=== PATIENT | female | born 1945 | race Hispanic/Latino ===

== ENCOUNTER 2022-05-03 02:58 | Observation (INO) | payer OTHER, MEDICARE ==
[2022-05-03] VITALS (8 sets, daily range): BP systolic 123–181; BP diastolic 60–94
[~2022-05-03] VITALS: Ht 149.9 cm; Wt 82.8 kg
[~2022-05-03 02:58] MED LIST: IBUP-1493 PO
[2022-05-03 03:41] LABS: BASOPHILS % (AUTO) 0.3 % (0.0-5.0); EOSINOPHILS % (AUTO) 3.1 % (0.0-8.0); HEMATOCRIT 32.8 % (36-48); LYMPHOCYTES % (AUTO) 19.6 % (21.0-51.0); MEAN CORPUSCULAR HGB CONC 32.6 g/dL (32.0-36.0); MEAN CORPUSCULAR VOLUME 88.9 fL (79-99); MONOCYTES % (AUTO) 8.5 % (3.0-13.0); NEUTROPHILS % (AUTO) 68.2 % (40.0-77.0); PLATELET COUNT (AUTO) 179 K/uL (130-400); RED BLOOD CELL COUNT(AUTO) 3.69 MIL/uL (4.00-5.50); RED CELL DISTRIBUTION WIDTH 15.2 % (11.0-15.5); WHITE BLOOD COUNT (AUTO) 7.2 K/uL (4.8-10.8)
[2022-05-03 03:52] LABS: POTASSIUM 3.4 mmol/L (3.5-5.1)
[2022-05-03 03:56] LABS: ALBUMIN 3.6 g/dL (3.5-5.0); TOTAL PROTEIN, SERUM 7.7 g/dL (6.0-8.3)
[2022-05-03] MEDS ORDERED: ONDANSETRON 4MG INJ IVP PRN (05:30)
[2022-05-03] MEDS ORDERED: POTASSIUM CHLORIDE 10MEQ/100ML 100 ML IV PRN (05:30)
[2022-05-03] MEDS ORDERED: MAGNESIUM 2GM PREMIX 50ML 50 ML IV PRN (05:30)
[2022-05-03] MEDS ORDERED: LACTULOSE 20 GM/30 ML UDCUP PO PRN (05:30)
[2022-05-03] MEDS ORDERED: HYDRALAZINE 20MG/ML VIAL IV PRN (05:30)
[2022-05-03] MEDS ORDERED: ACETAMINOPHEN 650 MG SUPPOSITORY RC PRN (05:30)
[2022-05-03] MEDS ORDERED: DOCUSATE SODIUM 100 MG CAP PO PRN (05:30)
[2022-05-03] MEDS ORDERED: TEMAZEPAM 15 MG CAPSULE PO PRN (05:30)
[2022-05-03] MEDS ORDERED: LABETALOL 20MG SYG IV PRN (05:30)
[2022-05-03] MEDS ORDERED: CLONIDINE HCL 0.1 MG TABLET PO PRN (05:30)
[2022-05-03] MEDS ORDERED: GLUCAGON 1MG KIT 1 MG ML IM PRN (05:30)
[2022-05-03] MEDS ORDERED: LIDOCAINE HCL-MPF 1% 2ML VIAL IV PRN (05:30)
[2022-05-03] MEDS ORDERED: POTASSIUM CHLORIDE 10% ELIXIR 20 MEQ/15 ML UDCUP PO PRN (05:30)
[2022-05-03] MEDS ORDERED: DEXTROSE 50%-WATER 50 ML DISP.SYRIN IV PRN (05:30)
[2022-05-03] MEDS ORDERED: NITROGLYCERIN 0.4 MG SL TAB SL PRN (06:00)
[2022-05-03] MEDS ORDERED: IOHEXOL 350 MG/ML 100ML INFUS..BTL IV ONE (06:15)
[2022-05-03] MEDS: INSULIN HUMULIN R 100 UNIT/ML 3ML SQ SCH ×4 (07:30→20:33)
[2022-05-03] MEDS ORDERED: NITR0.4T50 SL (07:51)
[2022-05-03] MEDS ORDERED: FURO20TA4 PO (07:51)
[2022-05-03] MEDS ORDERED: ISOS30TA92 PO (07:51)
[2022-05-03] MEDS ORDERED: ATOR10 PO (07:51)
[2022-05-03] MEDS ORDERED: ACET-2079 PO (07:51)
[2022-05-03] MEDS ORDERED: PANT40TA54 PO (07:51)
[2022-05-03] MEDS ORDERED: AEC81 PO (07:51)
[2022-05-03] MEDS ORDERED: LISI20TA24 PO (07:51)
[2022-05-03] MEDS ORDERED: QUET200T30 PO (07:51)
[2022-05-03] MEDS ORDERED: FAMO20TA8 PO (07:51)
[2022-05-03] MEDS ORDERED: MECL-160 PO (07:51)
[2022-05-03] MEDS ORDERED: PIOG15TA66 PO (07:51)
[2022-05-03] MEDS ORDERED: MELO-106 PO (07:51)
[2022-05-03] MEDS ORDERED: PARO-37 PO (07:51)
[2022-05-03] MEDS ORDERED: ORPH-43 PO (07:51)
[2022-05-03] MEDS ORDERED: LINA5TAB PO (07:51)
[2022-05-03] MEDS: KCL 20 MEQ ERTAB PO PRN ×2 (09:56→13:19)
[2022-05-03] MEDS: PANTOPRAZOLE 40 MG TAB DR PO SCH (09:56)
[2022-05-03] MEDS: ASPIRIN 81MG CHEW TAB PO SCH (09:57)
[2022-05-03] MEDS: ENOXAPARIN SODIUM 40 MG/0.4 ML SYRINGE SQ SCH (09:58)
[2022-05-03] MEDS: ACETAMINOPHEN 325 MG TAB PO PRN ×2 (13:38→20:36)
[2022-05-03] MEDS ORDERED: MECLIZINE HCL 25 MG TABLET PO PRN (15:00)
[2022-05-03] MEDS: FAMOTIDINE 20MG TAB PO SCH (20:36)
[2022-05-03] MEDS ORDERED: ATORVASTATIN 10 MG TABLET PO SCH (21:00)
[2022-05-03] MEDS ORDERED: ATORVASTATIN 40 MG TABLET PO SCH (21:00)
[2022-05-04] MEDS: ACETAMINOPHEN 325 MG TAB PO PRN ×2 (03:47→12:20)
[2022-05-04 04:09] LABS: BASOPHILS % (AUTO) 0.3 % (0.0-5.0); EOSINOPHILS % (AUTO) 5.1 % (0.0-8.0); HEMATOCRIT 31.3 % (36-48); LYMPHOCYTES % (AUTO) 33.4 % (21.0-51.0); MEAN CORPUSCULAR HEMOGLOBIN 28.5 pg (27.0-33.0); MEAN CORPUSCULAR HGB CONC 32.9 g/dL (32.0-36.0); MEAN CORPUSCULAR VOLUME 86.5 fL (79-99); PLATELET COUNT (AUTO) 187 K/uL (130-400); RED BLOOD CELL COUNT(AUTO) 3.62 MIL/uL (4.00-5.50); RED CELL DISTRIBUTION WIDTH 15.1 % (11.0-15.5); WHITE BLOOD COUNT (AUTO) 6.1 K/uL (4.8-10.8)
[2022-05-04 04:29] LABS: CREATININE 0.9 mg/dL (0.5-1.5); MAGNESIUM 1.8 mg/dL (1.80-2.40); PHOSPHORUS 3.3 mg/dL (2.5-4.9)
[2022-05-04 04:33] VITALS: BP 162/83
[2022-05-04] MEDS: INSULIN HUMULIN R 100 UNIT/ML 3ML SQ SCH ×2 (06:42→10:58)
[2022-05-04 08:00] VITALS: BP 153/70
[2022-05-04] MEDS ORDERED: LISINOPRIL 20 MG TABLET PO SCH (09:00)
[2022-05-04] MEDS: ASPIRIN 81MG CHEW TAB PO SCH (09:00)
[2022-05-04] MEDS ORDERED: MELOXICAM 7.5 MG TABLET PO SCH (09:00)
[2022-05-04] MEDS ORDERED: PAROXETINE HCL 20 MG TABLET PO SCH (09:00)
[2022-05-04] MEDS ORDERED: ASPIRIN 81 MG EC TAB PO SCH (09:00)
[2022-05-04] MEDS: ISOSORBIDE MONO 30MG SR TAB PO SCH ×2 (09:00→09:42)
[2022-05-04] MEDS: FAMOTIDINE 20MG TAB PO SCH (09:41)
[2022-05-04] MEDS: PANTOPRAZOLE 40 MG TAB DR PO SCH (09:41)
[2022-05-04] MEDS: ENOXAPARIN SODIUM 40 MG/0.4 ML SYRINGE SQ SCH (09:44)
[2022-05-04 11:40] VITALS: BP 143/79
[2022-05-04] MEDS ORDERED: DILT120C89 PO (13:14)
[2022-05-04] MEDS ORDERED: DILTIAZEM 120MG SR CAP PO SCH (13:30)
[2022-05-04 13:41] VITALS: BP 130/66
[2022-05-04] MEDS ORDERED: QUETIAPINE FUMARATE 100 MG TAB PO SCH (21:00)
[2022-05-05] MEDS ORDERED: DILTIAZEM 120MG SR CAP PO SCH (09:00)
== END 2022-05-04 15:20 | disposition home or self-care (01) ==
LOC: EDH 02:58 → EDHIP 05:19 → 2AH 08:09
PROVIDERS: ADMIT Internal Medicine Pulmonary Disease; ATTEND Internal Medicine Pulmonary Disease
DX: R00.2 Palpitations (principal); Z20.822 Contact with and (suspected) exposure to COVID-19; I10 Essential (primary) hypertension; R51.9 Headache, unspecified; M25.519 Pain in unspecified shoulder; E87.8 Other disorders of electrolyte and fluid balance, not elsewhere classified; D64.9 Anemia, unspecified; R73.9 Hyperglycemia, unspecified; M19.90 Unspecified osteoarthritis, unspecified site; I25.10 Atherosclerotic heart disease of native coronary artery without angina pectoris; E78.5 Hyperlipidemia, unspecified; I48.0 Paroxysmal atrial fibrillation; I49.5 Sick sinus syndrome; I47.1 Supraventricular tachycardia; I24.9 Acute ischemic heart disease, unspecified; Z95.0 Presence of cardiac pacemaker; Z88.0 Allergy status to penicillin; Z79.01 Long term (current) use of anticoagulants
CPT/HCPCS: 96374; 96372 ×2; 96375 ×2; 99285; 84484; 80053; 83880; 85025 ×2; 85378; 82948 ×5; 36415 ×2; 87635; 71045; 70450; 71275; 93306; 93356; 93970; 93005; 83735; 84100; 80048; G0378 ×33; J0360; J2405; J1650 ×2; Q9967; J3475